=== PATIENT | female | born 1965 | race Two or more races ===

== ENCOUNTER → 2017-06-24 | Day surgery (SDC) | payer OTHER ==
[2017-06-23 14:39] VITALS: BMI 30.4
[~2017-06-24] MED LIST: PROPOFOL 20 ML ONE
[2017-06-24 09:05] VITALS: TEMP 97.8
[2017-06-24 09:55] VITALS: BP 109/76; PULSE 60
== END | disposition home or self-care (01) ==
LOC: JASU-ENDO 07:28
PROVIDERS: ATTEND Internal Medicine Gastroenterology
PROC: 0DJD8ZZ Inspection of Lower Intestinal Tract, Via Natural or Artificial Opening Endoscopic (ICD-10-PCS; principal; 2017-06-24 08:45)
DX: Z12.11 Encounter for screening for malignant neoplasm of colon (principal); K57.30 Diverticulosis of large intestine without perforation or abscess without bleeding
CPT/HCPCS: 36415; 84703

== ENCOUNTER 2022-04-23 04:12 | Day surgery (SDC) | payer OTHER ==
[2022-04-19 14:59] VITALS: BMI 32.2
[~2022-04-23 04:12] MED LIST changes: +BUPIVACAINE HCL/PF 0.5% (5MG/ML) 10 ML VIAL IJ ONE; -PROPOFOL 20 ML ONE
[2022-04-23] MEDS ORDERED: BUPIVACAINE HCL/PF 0.5% (5MG/ML) 10 ML VIAL IJ ONE (09:38)
[2022-04-23 09:58] VITALS: BP 110/64; PULSE 68; RESP 19; TEMP 98.7
== END 2022-04-23 10:35 | disposition home or self-care (01) ==
LOC: JASU-SURG 04:12
PROVIDERS: ATTEND Pain Medicine Pain Medicine
PROC: BR14YZZ Fluoroscopy of Cervical Facet Joint(s) using Other Contrast (ICD-10-PCS; 2022-04-23)
PROC: 3E0T3BZ Introduction of Anesthetic Agent into Peripheral Nerves and Plexi, Percutaneous Approach (ICD-10-PCS; principal; 2022-04-23 09:30)
DX: M47.812 Spondylosis without myelopathy or radiculopathy, cervical region (principal)
CPT/HCPCS: 76000-TC-FY